=== PATIENT | male | born 1990 | race African-American/Black ===

== ENCOUNTER 2020-04-24 11:03 | Emergency (ER) | payer OTHER ==
[~2020-04-24] VITALS: Ht 175.3 cm; Wt 72.6 kg
[2020-04-24 11:34] LABS: URINE BILIRUBIN NEGATIVE (Negative); URINE BLOOD NEGATIVE (Negative); URINE CLARITY CLEAR; URINE COLOR YELLOW; URINE GLUCOSE-RANDOM NEGATIVE (Negative); URINE KETONES NEGATIVE (Negative); URINE LEUKOCYTES NEGATIVE (Negative); URINE NITRITE NEGATIVE (Negative); URINE PROTEIN NEGATIVE (Negative); URINE UROBILINOGEN 0.2 E.U./dl (0.2-1.0)
[2020-04-24] MEDS ORDERED: RISPERDAL2 MG PO (11:36)
[2020-04-24 11:41] LABS: AMP/METHAMP Negative (Negative); BARBITURATES Negative (Negative); BENZODIAZEPINES Negative (Negative); COCAINE Negative (Negative); METHADONE Negative (Negative); OPIATES Negative (Negative); PCP Negative (Negative); THC POSITIVE (Negative)
[2020-04-24 12:01] LABS: HEMATOCRIT 38.8 % (42.0-52.0); HEMOGLOBIN 13.2 gm/dL (14.0-18.0); MCH 31.4 pg (26.0-34.0); MCHC 34.1 g/dL (28.0-37.0); MCV 92.1 fL (80.0-100.0); MPV 7.4 fl. (7.2-11.1); RBC 4.22 mil/uL (4.50-6.00); RDW-CV 14.3 % (10.5-14.5); WBC 6.8 thou/uL (4.0-11.0)
[2020-04-24 12:09] LABS: CALCIUM 8.2 mg/dL (8.5-10.1); CREATININE 1.2 mg/dL (0.6-1.3)
[2020-04-24 12:13] LABS: ALBUMIN 3.4 g/dL (3.4-5.0); TOTAL BILIRUBIN 0.2 mg/dL (<0.1-1.0)
[2020-04-24 12:39] LABS: ALCOHOL < 10 mg/dL (<10); SALICYLATE 4.4 mg/dL (2.8-20.0)
[2020-04-24 12:40] LABS: ACETAMINOPHEN < 2 ug/mL (10-30)
[2020-04-28 08:37] VITALS: BP 117/84
== END 2020-04-28 08:39 | disposition home or self-care (01) ==
LOC: M.ERS 11:03
PROVIDERS: Personal Emergency Response Attendant
DX: F22 Delusional disorders (principal); F29 Unspecified psychosis not due to a substance or known physiological condition; F91.9 Conduct disorder, unspecified; Z20.828 Contact with and (suspected) exposure to other viral communicable diseases